=== PATIENT | female | born 1935 | race Caucasian/White ===

== ENCOUNTER 2019-02-05 18:11 | Emergency (ER) | payer MEDICARE ==
[~2019-02-05] VITALS: Ht 167.6 cm; Wt 68.0 kg
[~2019-02-05 18:11] MED LIST: ASP325TEC PO; COZ25 PO; FENOFIBRATE PO; FISH OIL 1,0001 EAC1 PO; GLIMEPIRIDE4 MG PO; LASIX20 MG PO; LEVAQUIN500 MG PO; LOSARTAN POTAS100 MG PO; METFORMIN HCL500 MG PO; MTP50T PO; MUCDM PO; NFD30TCR PO; PREDNISONE20 MG PO; SIMVASTATIN20 MG PO; TYLENOL PM EX-1 EACH PO; VITAMIN B-121000 MCG PO; XOPENEX HFA15 GM IH; ZANTAC150 MG PO
[2019-02-05 19:04] LABS: BASOPHILS % 0.5 % (0.0-1.0); EOSINOPHILS # (AUTO) 0.1 (0.0-0.4); EOSINOPHILS % 1.4 % (0.0-6.0); HEMATOCRIT 39.5 % (34.2-44.1); HEMOGLOBIN 13.6 g/dL (12.0-16.0); LYMPHOCYTES # (AUTO) 1.6 (1.0-3.2); LYMPHOCYTES % 22.2 % (18.0-39.1); MEAN CORPUSCULAR HEMOGLOBIN 30.6 pg (28-32); MEAN CORPUSCULAR HGB CONC 34.4 g/dL (31-35); MONOCYTES # (AUTO) 0.7 (0.2-0.8); MONOCYTES % 9.5 % (4.4-11.3); NEUTROPHILS # (AUTO) 4.9 (2.1-6.9); NEUTROPHILS % 66.1 % (38.7-80.0); PLATELET COUNT 206 x10e3/uL (140-360); RED BLOOD COUNT 4.44 x10e6/uL (3.6-5.1); RED CELL DISTRIBUTION WIDTH 12.7 % (11.7-14.4)
[2019-02-05 19:07] LABS: INR 0.88; PROTHROMBIN TIME 12.4 seconds (11.9-14.5)
[2019-02-05 19:08] LABS: PARTIAL THROMBOPLASTIN TIME 26.9 seconds (23.8-35.5)
[2019-02-05 19:16] LABS: ALANINE AMINOTRANSFERASE 8 IU/L (0-55); ALBUMIN 3.9 g/dL (3.5-5.0); ALBUMIN/GLOBULIN RATIO 1.2 (0.8-2.0); ALKALINE PHOSPHATASE 47 IU/L (40-150); ANION GAP 14.5 mmol/L (8-16); BLOOD UREA NITROGEN 10 mg/dL (7-26); BUN/CREATININE RATIO 14 (6-25); CALCIUM 10.6 mg/dL (8.4-10.2); CARBON DIOXIDE 26 mmol/L (22-29); CHLORIDE 102 mmol/L (98-107); CREATININE, SERUM 0.69 mg/dL (0.57-1.11); EST GLOMERULAR FILTRATION RATE > 60 ML/MIN (60-); GLUCOSE 95 mg/dL (74-118); POTASSIUM 3.5 mmol/L (3.5-5.1); SODIUM 139 mmol/L (136-145)
--- NOTE | 2019-02-05 20:12 | Diagnostic Imaging Report ---
EXAMINATION: CHEST SINGLE (PORTABLE) INDICATION: Lethargic. COMPARISON: None FINDINGS: TUBES and LINES: None. LUNGS: Lungs are well inflated. Lungs are clear. There is no evidence of pneumonia or pulmonary edema. PLEURA: No pleural effusion or pneumothorax. HEART AND MEDIASTINUM: The cardiomediastinal silhouette is unremarkable. There are atherosclerotic calcifications within the aorta. BONES AND SOFT TISSUES: No acute osseous lesion. Soft tissues are unremarkable. UPPER ABDOMEN: No free air under the diaphragm. IMPRESSION: No acute thoracic abnormality. Signed by: Dr. Emiliano Medina M.D. on 02/05/2019 8:08 PM
[2019-02-05 20:34] LABS: CREATINE KINASE MB 0.4 ng/mL (0-5.0)
--- NOTE | 2019-02-05 20:35 | Diagnostic Imaging Report ---
Examination: CT head without contrast Clinical Indication: Altered mental status; lethargy; confusion. Technique: Transaxial noncontrast images from the skull base through the vertex were obtained. Sagittal and coronal reformatted images were done. Dose modulation, iterative reconstruction, and/or weight based adjustment of the mA/kV was utilized to reduce the radiation dose to as low as reasonably achievable. Comparison: None. Findings: Scalp: No abnormalities. Bones: Intact. No fractures. No blastic or lytic lesions. Brain sulci: Appropriate for patient's age. Ventricles: The ventricular size is out of proportion with respect to cerebral convexity sulci, concerning for a communicating type of hydrocephalus, such as normal pressure hydrocephalus. Extra-axial space: No abnormalities. Parenchyma: There are mild confluent areas of low-attenuation within subcortical and periventricular white matter, nonspecific, but could represent microvascular ischemic disease. No masses, hemorrhage, or acute or chronic cortical based vascular insults. Suprasellar region: No abnormalities. Craniocervical junction: The foramen magnum is patent. No Chiari one malformation. Incidental findings: Atherosclerotic calcification of the cavernous and supraclinoid internal carotid and V4 segments of the bilateral vertebral arteries. Impression: 1. No acute intracranial finding. 2. Findings as described could be related to normal pressure hydrocephalus. 3. Mild chronic microvascular ischemic change. Signed by: Dr. Barbra Vences M.D. on 02/05/2019 8:31 PM
--- NOTE | 2019-02-05 20:41 | Diagnostic Imaging Report ---
EXAM: CT Abdomen and Pelvis WITH contrast INDICATION: Abdominal pain. COMPARISON: None. TECHNIQUE: Abdomen and pelvis were scanned utilizing a multidetector helical scanner from the lung base to the pubic symphysis after administration of IV contrast. Coronal and sagittal reformations were obtained. Routine protocol was performed. Scan was performed when during portal venous phase. IV CONTRAST: 100 cc of 0 300 ORAL CONTRAST: Water RADIATION DOSE: Total DLP: 431.51 mGy*cm Estimated effective dose: (DLP x 0.015 x size factor) mSv COMPLICATIONS: None FINDINGS: LINES and TUBES: None. LOWER THORAX: Unremarkable HEPATOBILIARY: 8 mm cyst in the hepatic dome. No biliary ductal dilation. GALLBLADDER: There is a 9.1 mm oval soft tissue density with more focal punctate density possibly calcification within the gallbladder which may represent a sludge ball, polyp or a minimally calcified calculus. No wall thickening. SPLEEN: No splenomegaly. PANCREAS: Diffuse atrophy. No focal masses or ductal dilatation. ADRENALS: Nodular thickening of the adrenal glands may reflect hyperplasia. KIDNEYS/URETERS: Kidneys enhance symmetrically. No hydronephrosis. No cystic or solid mass lesions. No stones. GI TRACT: No abnormal distention, wall thickening, or evidence of bowel obstruction. Appendix is normal. PELVIC ORGANS/BLADDER: The uterus is absent. LYMPH NODES: No lymphadenopathy. VESSELS: There is severe atherosclerotic disease in the aorta and major arterial branches with mixed atherosclerotic plaque throughout. Mild focal ectasia of the distal abdominal aorta measuring 2.1 cm on image 35 series 2. The common hepatic artery originates separately from the aorta, normal variation. PERITONEUM / RETROPERITONEUM: No free air or fluid. BONES: There are degenerative changes in the lumbar spine. SOFT TISSUES: Unremarkable. IMPRESSION: 1. No acute abdominopelvic abnormality. 2. 9 mm gallbladder polyp, sludge ball or gallstone. No cholecystitis. Consider further evaluation with nonemergent ultrasound gallbladder. Signed by: Dr. Emiliano Medina M.D. on 02/05/2019 8:38 PM
[2019-02-05] MEDS ORDERED: HYDRALAZINE HCL 20 MG/ML VIAL IV ONE (20:54)
[2019-02-05 20:56] LABS: CLARITY,URINE SL CLOUDY (CLEAR); COLOR,URINE STRAW (YELLOW)
[2019-02-05 20:57] LABS: BILIRUBIN,URINE NEGATIVE (NEGATIVE); KETONES,URINE NEGATIVE (NEGATIVE); LEUKOCYTE ESTERASE ,URINE NEGATIVE (NEGATIVE); NITRITE,URINE NEGATIVE (NEGATIVE); PROTEIN,URINE DIPSTICK NEGATIVE (NEGATIVE); URINE UROBILINOGEN 0.2 mg/dL (0.2 - 1)
[2019-02-05 21:07] LABS: AMORPHOUS SEDIMENT,URINE FEW (FEW); BACTERIA,URINE FEW /HPF; EPITHELIAL CELLS,URINE MODERATE /LPF; MUCUS,URINE FEW (RARE)
[2019-02-05] MEDS ORDERED: IOPAMIDOL 370 MG/ML 200 ML INFUS..BTL INJ ONE (21:11)
[2019-02-05] MEDS ORDERED: SODIUM CHLORIDE 0.9% 50ML 50 ML ONE (21:11)
[2019-02-05 21:47] VITALS: BP 164/65
== END 2019-02-05 22:14 | disposition home or self-care (01) ==
LOC: ER 18:11
DX: R53.1 Weakness (principal); I10 Essential (primary) hypertension; E78.00 Pure hypercholesterolemia, unspecified; Z85.3 Personal history of malignant neoplasm of breast
CPT/HCPCS: 36415; 70450; 71045; 74177; 80053; 81001; 82550; 82553; 83605; 84484; 85025; 85610; 85730; 93005; 96374; 99284; J0360; Q9967

== ENCOUNTER 2021-11-29 10:54 | Inpatient (IN) | payer MEDICARE ==
[~2021-11-29] VITALS: Ht 167.6 cm; Wt 56.9 kg
[2021-11-29 11:21] LABS: BASOPHILS # (AUTO) 0.1 (0.0-0.1); BASOPHILS % 0.4 % (0.0-1.0); EOSINOPHILS # (AUTO) 0.1 (0.0-0.4); EOSINOPHILS % 0.9 % (0.0-6.0); HEMOGLOBIN 13.2 g/dL (12.0-16.0); LYMPHOCYTES # (AUTO) 1.9 (1.0-3.2); LYMPHOCYTES % 14.6 % (18.0-39.1); MEAN CORPUSCULAR HEMOGLOBIN 30.8 pg (28-32); MEAN CORPUSCULAR HGB CONC 33.8 g/dL (31-35); MEAN CORPUSCULAR VOLUME 91.1 fL (81-99); MONOCYTES # (AUTO) 1.6 (0.2-0.8); MONOCYTES % 12.5 % (4.4-11.3); NEUTROPHILS % 71.1 % (38.7-80.0); PLATELET COUNT 244 x10e3/uL (140-360); RED BLOOD COUNT 4.28 x10e6/uL (3.6-5.1); RED CELL DISTRIBUTION WIDTH 13.5 % (11.7-14.4)
[2021-11-29] MEDS ORDERED: LOSARTAN POTAS100 MG PO (11:25)
[2021-11-29] MEDS ORDERED: GLIMEPIRIDE2 MG PO (11:25)
[2021-11-29] MEDS ORDERED: ULTRAM50 MG PO (11:25)
[2021-11-29] MEDS ORDERED: METFORMIN HCL500 MG PO (11:25)
[2021-11-29] MEDS ORDERED: NEURONTIN100 MG PO (11:25)
[2021-11-29 11:39] LABS: ALBUMIN 3.2 g/dL (3.5-5.0); ALBUMIN/GLOBULIN RATIO 0.7 (0.8-2.0); ANION GAP 14.9 mmol/L (8-16); CALCIUM 11.1 mg/dL (8.4-10.2); CREATININE, SERUM 0.75 mg/dL (0.57-1.11); POTASSIUM 3.9 mmol/L (3.5-5.1)
[2021-11-29 11:56] LABS: INR 0.89; PARTIAL THROMBOPLASTIN TIME 27.9 seconds (23.8-35.5); PROTHROMBIN TIME 12.9 seconds (11.9-14.5)
[2021-11-29 12:09] LABS: CREATINE KINASE MB 1.8 ng/mL (0-5.0)
[2021-11-29 12:17] LABS: CLARITY,URINE CLEAR (CLEAR); COLOR,URINE YELLOW (YELLOW)
[2021-11-29 12:18] LABS: KETONES,URINE 1+ (NEGATIVE); LEUKOCYTE ESTERASE ,URINE NEGATIVE (NEGATIVE); NITRITE,URINE NEGATIVE (NEGATIVE); PROTEIN,URINE DIPSTICK NEGATIVE (NEGATIVE); URINE UROBILINOGEN 0.2 mg/dL (0.2 - 1)
[2021-11-29 12:25] LABS: BACTERIA,URINE FEW /HPF; EPITHELIAL CELLS,URINE FEW /LPF; RBC,URINE 0-5 /HPF (0-5); WBC,URINE (MAN) 0-5 /HPF (0-5)
[2021-11-29] MEDS ORDERED: DEXTROSE 50% SYRINGE 50 ML IV PRN (13:15)
[2021-11-29] MEDS ORDERED: ACETAMINOPHEN 325 MG TAB PO PRN (13:15)
[2021-11-29] MEDS ORDERED: ACETAMINOPHEN/CODEINE 300MG - 30MG TAB PO PRN (13:15)
[2021-11-29] MEDS ORDERED: ONDANSETRON HCL INJ 2MG/ML 2ML 2 MG/ML VIAL IV PRN (13:15)
[2021-11-29] MEDS: SODIUM CHLORIDE 0.9% 1000ML 1,000 ML IV SCH ×2 (13:35→21:40)
[2021-11-29] MEDS: GABAPENTIN 100 MG CAP PO SCH ×2 (16:00→21:00)
[2021-11-29] MEDS: INSULIN REGULAR, HUMAN 100 UNIT/1 ML SQ SCH ×2 (16:30→21:00)
[2021-11-29 16:32] VITALS: BP 136/71
[2021-11-29 16:48] VITALS: BP 136/71
[2021-11-29 17:05] VITALS: BP 136/71
[2021-11-29] MEDS: ENOXAPARIN 30 MG/0.3 ML SYR SC SCH (18:05)
[2021-11-29 20:00] VITALS: BP 114/58
[2021-11-29] MEDS: SIMVASTATIN 20 MG TAB PO SCH (21:00)
[2021-11-29 21:02] LABS: CREATINE KINASE MB 1.8 ng/mL (0-5.0)
[2021-11-30] VITALS (7 sets, daily range): BP systolic 127–179; BP diastolic 58–71
[2021-11-30 06:11] LABS: BASOPHILS # (AUTO) 0.1 (0.0-0.1); BASOPHILS % 0.5 % (0.0-1.0); EOSINOPHILS # (AUTO) 0.1 (0.0-0.4); EOSINOPHILS % 1.3 % (0.0-6.0); HEMATOCRIT 35.1 % (34.2-44.1); HEMOGLOBIN 11.3 g/dL (12.0-16.0); LYMPHOCYTES # (AUTO) 1.5 (1.0-3.2); LYMPHOCYTES % 16.6 % (18.0-39.1); MEAN CORPUSCULAR HEMOGLOBIN 30.9 pg (28-32); MEAN CORPUSCULAR HGB CONC 32.2 g/dL (31-35); MEAN CORPUSCULAR VOLUME 95.9 fL (81-99); MONOCYTES # (AUTO) 1.2 (0.2-0.8); NEUTROPHILS # (AUTO) 6.3 (2.1-6.9); NEUTROPHILS % 68.4 % (38.7-80.0); PLATELET COUNT 215 x10e3/uL (140-360); RED BLOOD COUNT 3.66 x10e6/uL (3.6-5.1); RED CELL DISTRIBUTION WIDTH 13.5 % (11.7-14.4)
[2021-11-30 06:59] LABS: ALBUMIN 2.6 g/dL (3.5-5.0); ALBUMIN/GLOBULIN RATIO 0.7 (0.8-2.0); ANION GAP 11.4 mmol/L (8-16); CALCIUM 10.5 mg/dL (8.4-10.2); CREATININE, SERUM 0.67 mg/dL (0.57-1.11); POTASSIUM 3.4 mmol/L (3.5-5.1)
[2021-11-30 07:25] LABS: CREATINE KINASE MB 1.9 ng/mL (0-5.0)
[2021-11-30] MEDS: INSULIN REGULAR, HUMAN 100 UNIT/1 ML SQ SCH ×4 (07:30→21:00)
[2021-11-30] MEDS: LOSARTAN POTASSIUM 100 MG TAB PO SCH (10:29)
[2021-11-30] MEDS: GLIMEPIRIDE 2 MG TAB PO SCH (10:29)
[2021-11-30] MEDS: GABAPENTIN 100 MG CAP PO SCH ×3 (10:30→20:22)
[2021-11-30] MEDS ORDERED: POTASSIUM CHLORIDE 10MEQ EA PO ONE (12:15)
[2021-11-30] MEDS: ENOXAPARIN 30 MG/0.3 ML SYR SC SCH (17:13)
[2021-11-30] MEDS: SIMVASTATIN 20 MG TAB PO SCH (20:22)
[2021-12-01] VITALS (7 sets, daily range): BP systolic 132–172; BP diastolic 56–92
[2021-12-01] MEDS: CLONIDINE HCL 0.1 MG TAB PO PRN (06:43)
[2021-12-01] MEDS: INSULIN REGULAR, HUMAN 100 UNIT/1 ML SQ SCH ×4 (08:22→22:00)
[2021-12-01] MEDS: GLIMEPIRIDE 2 MG TAB PO SCH (09:27)
[2021-12-01] MEDS: GABAPENTIN 100 MG CAP PO SCH ×3 (09:28→22:00)
[2021-12-01] MEDS: LOSARTAN POTASSIUM 100 MG TAB PO SCH (09:28)
[2021-12-01] MEDS: ENOXAPARIN 30 MG/0.3 ML SYR SC SCH (17:17)
[2021-12-01] MEDS: SIMVASTATIN 20 MG TAB PO SCH (22:00)
[2021-12-01] MEDS: ACETAMINOPHEN 325 MG TAB PO PRN (22:00)
[2021-12-02] VITALS (8 sets, daily range): BP systolic 109–220; BP diastolic 49–84
[2021-12-02] MEDS: INSULIN REGULAR, HUMAN 100 UNIT/1 ML SQ SCH ×4 (07:30→21:20)
[2021-12-02] MEDS: DOCUSATE SODIUM 100 MG CAP PO SCH (08:47)
[2021-12-02] MEDS: GLIMEPIRIDE 2 MG TAB PO SCH (08:47)
[2021-12-02] MEDS: GABAPENTIN 100 MG CAP PO SCH ×3 (08:48→21:20)
[2021-12-02] MEDS: LOSARTAN POTASSIUM 100 MG TAB PO SCH (08:48)
[2021-12-02] MEDS: CLONIDINE HCL 0.1 MG TAB PO PRN (08:48)
[2021-12-02] MEDS: ENOXAPARIN 30 MG/0.3 ML SYR SC SCH (17:24)
[2021-12-02] MEDS: ACETAMINOPHEN 325 MG TAB PO PRN (17:24)
[2021-12-02] MEDS: SIMVASTATIN 20 MG TAB PO SCH (21:20)
[2021-12-03] VITALS (9 sets, daily range): BP systolic 110–187; BP diastolic 54–78
[2021-12-03] MEDS: INSULIN REGULAR, HUMAN 100 UNIT/1 ML SQ SCH ×4 (07:30→21:00)
[2021-12-03] MEDS: GLIMEPIRIDE 2 MG TAB PO SCH (13:30)
[2021-12-03] MEDS: DOCUSATE SODIUM 100 MG CAP PO SCH (13:30)
[2021-12-03] MEDS: LOSARTAN POTASSIUM 100 MG TAB PO SCH (13:30)
[2021-12-03] MEDS: GABAPENTIN 100 MG CAP PO SCH ×3 (13:31→20:41)
[2021-12-03] MEDS ORDERED: ONDANSETRON HCL 4 MG ORAL DISINTEGRATING TAB PO PRN (13:45)
[2021-12-03] MEDS: ENOXAPARIN 30 MG/0.3 ML SYR SC SCH (18:41)
[2021-12-03] MEDS: SIMVASTATIN 20 MG TAB PO SCH (20:42)
[2021-12-04] VITALS (7 sets, daily range): BP systolic 129–184; BP diastolic 60–88
[2021-12-04] MEDS: CLONIDINE HCL 0.1 MG TAB PO PRN (01:50)
[2021-12-04] MEDS: INSULIN REGULAR, HUMAN 100 UNIT/1 ML SQ SCH ×4 (07:30→22:04)
[2021-12-04] MEDS: GLIMEPIRIDE 2 MG TAB PO SCH (09:06)
[2021-12-04] MEDS: DOCUSATE SODIUM 100 MG CAP PO SCH (09:06)
[2021-12-04] MEDS: GABAPENTIN 100 MG CAP PO SCH ×3 (09:07→21:00)
[2021-12-04] MEDS: LOSARTAN POTASSIUM 100 MG TAB PO SCH (09:07)
[2021-12-04] MEDS: ACETAMINOPHEN 325 MG TAB PO PRN ×2 (14:10→21:58)
[2021-12-04] MEDS: ENOXAPARIN 30 MG/0.3 ML SYR SC SCH (18:13)
[2021-12-04] MEDS ORDERED: LACTULOSE SYRUP 20 GM/30 ML UDC PO NR (18:15)
[2021-12-04] MEDS: SIMVASTATIN 20 MG TAB PO SCH (21:00)
[2021-12-05] VITALS (8 sets, daily range): BP systolic 156–197; BP diastolic 68–90
[2021-12-05] MEDS: DOCUSATE SODIUM 100 MG CAP PO SCH (08:58)
[2021-12-05] MEDS: GLIMEPIRIDE 2 MG TAB PO SCH (08:58)
[2021-12-05] MEDS: GABAPENTIN 100 MG CAP PO SCH ×3 (08:59→21:56)
[2021-12-05] MEDS: LOSARTAN POTASSIUM 100 MG TAB PO SCH (08:59)
[2021-12-05] MEDS: INSULIN REGULAR, HUMAN 100 UNIT/1 ML SQ SCH ×4 (09:00→21:56)
[2021-12-05] MEDS: HYDRALAZINE HCL 25 MG TAB PO SCH (16:15)
[2021-12-05] MEDS: ENOXAPARIN 30 MG/0.3 ML SYR SC SCH (16:33)
[2021-12-05] MEDS: METFORMIN HCL 500 MG TAB PO SCH (16:33)
[2021-12-05] MEDS: INSULIN GLARGINE 100 UNITS/ML VIAL SQ SCH (21:56)
[2021-12-05] MEDS: SIMVASTATIN 20 MG TAB PO SCH (21:56)
[2021-12-05] MEDS: CLONIDINE HCL 0.1 MG TAB PO PRN (21:57)
[2021-12-05] MEDS: ACETAMINOPHEN 325 MG TAB PO PRN (22:46)
[2021-12-06] VITALS (8 sets, daily range): BP systolic 135–186; BP diastolic 65–84
[2021-12-06] MEDS: INSULIN REGULAR, HUMAN 100 UNIT/1 ML SQ SCH ×4 (07:16→20:58)
[2021-12-06] MEDS: GABAPENTIN 100 MG CAP PO SCH ×3 (08:07→21:05)
[2021-12-06] MEDS: DOCUSATE SODIUM 100 MG CAP PO SCH (08:08)
[2021-12-06] MEDS: GLIMEPIRIDE 2 MG TAB PO SCH (08:08)
[2021-12-06] MEDS: HYDRALAZINE HCL 25 MG TAB PO SCH ×2 (08:08→16:18)
[2021-12-06] MEDS: METFORMIN HCL 500 MG TAB PO SCH ×2 (08:08→16:19)
[2021-12-06] MEDS: LOSARTAN POTASSIUM 100 MG TAB PO SCH (08:08)
[2021-12-06] MEDS: ACETAMINOPHEN 325 MG TAB PO PRN (10:35)
[2021-12-06] MEDS ORDERED: ACETAMINOPHEN/CODEINE 300MG - 30MG TAB PO PRN (11:15)
[2021-12-06] MEDS: ENOXAPARIN 30 MG/0.3 ML SYR SC SCH (16:35)
[2021-12-06] MEDS: HYDROCODONE/APAP 5MG-325MG TAB PO PRN (21:05)
[2021-12-06] MEDS: SIMVASTATIN 20 MG TAB PO SCH (21:05)
[2021-12-06] MEDS: INSULIN GLARGINE 100 UNITS/ML VIAL SQ SCH (21:05)
[2021-12-07 00:48] VITALS: BP 111/71
[2021-12-07 05:11] VITALS: BP 133/60
[2021-12-07] MEDS: ACETAMINOPHEN 325 MG TAB PO PRN (05:28)
[2021-12-07] MEDS: INSULIN REGULAR, HUMAN 100 UNIT/1 ML SQ SCH ×2 (07:30→12:00)
[2021-12-07 08:00] VITALS: BP 152/74
[2021-12-07 08:24] VITALS: BP 152/74
[2021-12-07] MEDS: GLIMEPIRIDE 2 MG TAB PO SCH (09:09)
[2021-12-07] MEDS: DOCUSATE SODIUM 100 MG CAP PO SCH (09:10)
[2021-12-07] MEDS: HYDRALAZINE HCL 25 MG TAB PO SCH (09:10)
[2021-12-07] MEDS: METFORMIN HCL 500 MG TAB PO SCH (09:10)
[2021-12-07] MEDS: GABAPENTIN 100 MG CAP PO SCH (09:11)
[2021-12-07] MEDS: LOSARTAN POTASSIUM 100 MG TAB PO SCH (09:11)
[2021-12-07] MEDS: HYDROCODONE/APAP 5MG-325MG TAB PO PRN (11:08)
[2021-12-07 12:29] VITALS: BP 132/71
[2021-12-07] MEDS ORDERED: DOCUSATE SODIU100 MG PO (14:11)
[2021-12-07] MEDS ORDERED: HUMULIN R100 UNIT/2 INJ (14:11)
[2021-12-07] MEDS ORDERED: HYDRALAZINE HCL25 MG PO (14:13)
[2021-12-07] MEDS ORDERED: TYLENOL325 MG PO (14:13)
[2021-12-07] MEDS ORDERED: LANTUS 3ML100 UNITS/ SQ (14:13)
[2021-12-07] MEDS ORDERED: CLONIDINE HCL0.1 MG PO (14:15)
[2021-12-07] MEDS ORDERED: HYDROCODON-ACE1 EA11 PO (14:16)
[2021-12-07] MEDS ORDERED: ONDANSETRON ODT4 MG PO (14:16)
== END 2021-12-07 15:11 | DRG 948 ==
LOC: ER 11:09 → ERHOLD 13:06 → MED/SURG3 16:15
PROVIDERS: ADMIT Internal Medicine; ATTEND Internal Medicine
DX: G89.11 Acute pain due to trauma (principal); S42.252A Displaced fracture of greater tuberosity of left humerus, initial encounter for closed fracture; E44.1 Mild protein-calorie malnutrition; R62.7 Adult failure to thrive; S42.009A Fracture of unspecified part of unspecified clavicle, initial encounter for closed fracture; I10 Essential (primary) hypertension; E11.9 Type 2 diabetes mellitus without complications; I25.10 Atherosclerotic heart disease of native coronary artery without angina pectoris; E86.0 Dehydration; Z68.20 Body mass index [BMI] 20.0-20.9, adult; Z95.5 Presence of coronary angioplasty implant and graft; Z96.643 Presence of artificial hip joint, bilateral; W18.39XA Other fall on same level, initial encounter; Y93.89 Activity, other specified; Y92.019 Unspecified place in single-family (private) house as the place of occurrence of the external cause; Z85.3 Personal history of malignant neoplasm of breast; Z88.5 Allergy status to narcotic agent; Z88.0 Allergy status to penicillin; Z20.822 Contact with and (suspected) exposure to COVID-19; R53.81 Other malaise
CPT/HCPCS: 36415; 70450; 71045; 72125; 72170; 80053; 81001; 82550; 82553; 82948; 84484; 85025; 85610; 85730; 93005; 94799; 96361; 96372; 97139; 99251; 99284; J1650; J1815; J1817; J7030; U0002